=== PATIENT | male | born 2000 | race Caucasian/White ===

== ENCOUNTER 2021-08-31 08:15 | Emergency (ER) | payer OTHER ==
[~2021-08-31] VITALS: Ht 167.6 cm; Wt 118.0 kg
[2021-08-31 08:15] VITALS: BP 130/79
--- NOTE | 2021-08-31 08:32 | PHYS DOC ---
Past History Past Medical History: Other (autism) Adult General Chief Complaint Chief Complaint: CONGESTION HPI HPI Patient is a 20-year-old male presenting via POV for upper respiratory symptoms. Reports onset was 1 week ago without any known inciting event, trauma, i ngestion or mechanism of injury. Nothing known makes better or worse. Ongoing nasal congestion, rhinorrhea, postnasal drip and dry nonproductive cough prompted him to come in for evaluation. Admits he is likely dehydrated as well given lack of p.o. intake and increased caffeinated tea consumption than baseline. Admits he is vaccinated against COVID-19, received a [employer] vaccine in December but states he is here today to get tested. Denies any obvious sick contacts or recent travel but given current Covid pandemic he is concerned. Admits he has history of autism spectrum and tachyarrhythmia for which his resting heart rate is typically ~115bpm. Besides URI symptoms reported, no other symptoms such as fever, chest pain, ripping or tearing sensation in chest, cough, shortness of breath, abdominal pain, dysuria etc. Review of Systems Review of Systems Fourteen body systems of review of systems have been reviewed. See HPI for pertinent positives and negative responses, other sanchez all other systems are negative, non-pertinent or non-contributory Physical Exam Physical Exam General: Appears well, non toxic, and comfortable Skin: Warm, dry. Normal for ethnicity. HEENT: Atraumatic. PERRLA. Rhinorrhea and congestion. Nasal turbinates boggy b/l. Moist mucous membranes. Uvula midline. Maintaining secretions. No phonation changes. Neck: Trachea midline. Normal ROM. No stridor. Respiratory: Normal WOB. CTAB w/o w/r/r. No tachypnea. Cardiovascular: Regular rate and rhythm. Normal peripheral perfusion. Abdomen: Soft. Non tender. No distension. Back: Normal ROM. Musculoskeletal: No swelling or deformity. Neuro: Alert and oriented x 4. MAEE. Lymph: No cervical LAD. Psych: Normal affect and mood. EKG EKG EKG ordered and interpreted by myself at 0838 hrs. as sinus tachycardia at 136 bpm, unremarkable intervals, no axis deviation, no acute ischemic findings, no STEMI Radiology/Procedures Radiology/Procedures [] Heart Score C/O Chest Pain: No HEART Score for Chest Pain: HEART Score for Chest Pain Response (Comments) Value History Slighlty/Non-Suspicious 0 ECG Normal 0 Age < 45 0 Risk Factors No Risk Factors 0 Total 0 Risk Factors: Risk Factors: DM, Current or recent (<one month) smoker, HTN, HLP, family history of CAD, obesity. Risk Scores: Risk Factors: DM, Current or recent (<one month) smoker, HTN, HLP, family history of CAD, obesity. Course & Med Decision Making Course & Med Decision Making Airway patent, breathing unlabored, IV access and vitals obtained concerning for tachycardia only HPI physical exam obtained concerning for viral syndrome and vaccinated patient against COVID-19, nonetheless given current pandemic joint decision made to pursue testing with PCR Covid pending EKG nonconcerning, nonischemic. Patient reports having tachycardia at rest which is a chronic issue for him. Likely dehydration. Joint decision made to start IV fluid rehydration given reported dehydration due to lack of p.o. intake At this time in care, mother who remained in waiting room as pt was PUI got angry. She reports she is patient's legal guardian and did not consent to any medical care, states patient does not have capacity to give detailed history for himself. I question this, pt has full capacity during my exam Mother withdraws all consent for care in ER setting. This was honored as patient does not have an emergent condition at present and so, IV fluids were stopped and patient ultimately discharged with instructions for continued supportive care, and self quarantine until PCR Covid results Dragon Disclaimer Dragon Disclaimer This electronic medical record was generated, in whole or in part, using a voice recognition dictation system. Departure Departure: Impression: Primary Impression: Viral syndrome Additional Impressions: Person under investigation for COVID-19 Chronic tachycardia Disposition: HOME / SELF CARE / HOMELESS Condition: STABLE Referrals: DM MALDONADO MD (PCP) Additional Instructions: You were seen for nasal congestion, runny nose, and possible infection with COVID-19. Your physical exam was reassuring. We tested you for COVID-19 but this test does not come back for 1 to 2 days. In the meantime you need to quarantine yourself at home away from all other individuals, especially those who are elderly or have any other chronic health issues or an immunocompromised status. Alternate Tylenol and ibuprofen as needed for body aches and pain. If your test does come back positive you need to quarantine yourself for 10 days until symptom-free. You should make sure to drink plenty of fluids and get plenty of rest. You should return to the ED if you develop worsening cough, shortness of breath, chest pain, or any other new or concerning symptoms. Problem Qualifiers CHRISTINA ABREU DO Aug 31, 2021 08:32
[2021-08-31] MEDS ORDERED: IV NORMAL SALINE 1,000ML 1,000 ML IV ONE (10:30)
[2021-08-31 10:44] LABS: BASO # 0.1 x10^3/uL (0.0-0.2); BASO % 1 % (0-3); CALCIUM 8.6 mg/dL (8.5-10.1); EOS # 0.2 x10^3/uL (0.0-0.7); EOS % 3 % (0-3); GFR 95.3; HEMATOCRIT 44.8 % (39.0-53.0); HEMOGLOBIN 15.1 g/dL (13.0-17.5); LYMPH # 1.7 x10^3/uL (1.0-4.8); LYMPH % 20 % (24-48); MEAN CORPUSCULAR HEMOGLOBIN 27 pg (25-35); MEAN CORPUSCULAR HGB CONC 34 g/dL (31-37); MEAN CORPUSCULAR VOLUME 79 fL (79-100); MONO # 0.9 x10^3/uL (0.0-1.1); MONO % 11 % (0-9); NEUT # 5.8 x10^3uL (1.8-7.7); NEUT % 67 % (31-73); PLATELET COUNT 271 x10^3/uL (140-400); RED BLOOD COUNT 5.69 x10^6/uL (4.30-5.70); RED CELL DISTRIBUTION WIDTH 13.3 % (11.5-14.5); WHITE BLOOD COUNT 8.7 x10^3/uL (4.0-11.0)
[2021-08-31 10:48] LABS: INFLUENZA A PATIENT NEGATIVE (NEGATIVE); INFLUENZA B PATIENT NEGATIVE (NEGATIVE)
--- NOTE | 2021-08-31 23:18 | EKG ---
[address] [address] Test Date: 2021-08-31 Test Time: 08:34:47 Pat Name: KAZ CARRANZA Department: Room: Gender: M Senior Sales Assistant: : [id number] Requested By: CHRISTINA ABREU Order Number: [id number] Reading MD: Thomas Carcamo Measurements Intervals [place] Rate: 136 P: 48 CO: 132 QRS: 21 QRSD: 72 T: 41 QT: 282 QTc: 427 Interpretive Statements SINUS TACHYCARDIA Electronically Signed On 09-03-2021 12:15:04 [employer] by Thomas Carcamo
== END 2021-08-31 09:00 | disposition home or self-care (01) ==
LOC: ER 08:15
DX: B34.9 Viral infection, unspecified (principal); R00.0 Tachycardia, unspecified; Z20.822 Contact with and (suspected) exposure to COVID-19
CPT/HCPCS: 36415; 80048; 85025; 87804; 93005; 99284; C9803; J7030; U0003